=== PATIENT | male | born 1980 | race Caucasian/White ===

== ENCOUNTER 2020-08-30 16:21 | Outpatient (CLI) | payer OTHER | END 2020-08-30 16:30 | disposition home or self-care (01) | LOC: RAD 16:21 | DX: M79.642 Pain in left hand (principal) ==

== ENCOUNTER → 2020-11-16 13:19 | Outpatient (CLI) | payer OTHER | END | disposition home or self-care (01) | LOC: LAB 13:19 | PROVIDERS: ATTEND Obstetrics & Gynecology Reproductive Endocrinology | DX: E11.9 Type 2 diabetes mellitus without complications (principal); E03.8 Other specified hypothyroidism; Z00.00 Encounter for general adult medical examination without abnormal findings; N39.8 Other specified disorders of urinary system; B15.0 Hepatitis A with hepatic coma ==

== ENCOUNTER 2021-05-22 11:19 | Outpatient (CLI) | payer OTHER | END 2021-05-22 11:32 | disposition home or self-care (01) | LOC: RAD 11:19 | PROVIDERS: ATTEND Family Medicine | DX: M25.539 Pain in unspecified wrist (principal); M79.643 Pain in unspecified hand ==

== ENCOUNTER 2021-05-24 12:08 | Outpatient (CLI) | payer OTHER | END 2021-05-24 12:09 | disposition home or self-care (01) | LOC: LAB 12:08 | DX: U07.1 COVID-19 (principal); A49.3 Mycoplasma infection, unspecified site ==

== ENCOUNTER 2021-09-02 11:21 | Outpatient (CLI) | payer OTHER | END 2021-09-02 11:26 | disposition home or self-care (01) | LOC: TOM 11:21 | PROVIDERS: ATTEND Family Medicine | DX: J32.0 Chronic maxillary sinusitis (principal); J32.8 Other chronic sinusitis; G47.30 Sleep apnea, unspecified ==